=== PATIENT | male | born 1985 | race Caucasian/White ===

== ENCOUNTER 2021-02-27 22:42 | Emergency (ER) | payer BC ==
[2021-02-27] MEDS ORDERED: Cyclobenzaprine 10 MG Tab PO ONE (22:43)
[2021-02-27] MEDS ORDERED: Ketorolac 10 MG Tab PO ONE (22:43)
[2021-02-27] MEDS ORDERED: hydrOXYzine HCl 50 MG/ML SDV IM ONE (23:12)
[2021-02-27] MEDS ORDERED: HYDROmorphone 2 MG/ML SDV IM ONE (23:12)
--- NOTE | 2021-02-27 23:15 | EDM.PDOC ---
ED HPI GENERAL MEDICAL PROBLEM - General Chief Complaint: Back Pain or Injury Stated Complaint: back pain Time Seen by Provider: 02/27/21 23:13 Source of Information: Reports: Patient History Limitations: Reports: No Limitations - History of Present Illness INITIAL COMMENTS - FREE TEXT/NARRATIVE: Anuj complains of severe back pain x 2weeks. No trauma. Left sided,radiates across the back. No neuro deficit. No fever. Back Pain Score (Numeric/FACES): 8 - Related Data Allergies Allergy/AdvReac Type Severity Reaction Status Date / Time No Known Allergies Allergy Verified 09/13/15 11:25 Home Meds: Home Meds Albuterol Sulfate [Ventolin Hfa] 1 - 2 puff IH Q4HR PRN 09/13/15 [History] Ascorbate Calcium [Vitamin C] 500 mg PO BID 09/13/15 [History] Dm/PE/Acetaminophen/Chlorphenr [Sosa-Anthon Plus Cld-Cough] 1 each PO ASDIRECTED PRN 09/13/15 [History] Past Medical History Other Gastrointestinal History: HAVING BLOODY STOOLS, THAT IS WHY A COLONOSCOPY IS NEEDED Other Musculoskeletal History: HAD A BROKEN HAND AND IT WENT UNREPAIRED FOR 1 WEEK BEFORE THEY REBROKE AND RESET IT. ED ROS GENERAL - Review of Systems Review Of Systems: Comprehensive ROS is negative, except as noted in HPI. ED EXAM,LOWER BACK PAIN/INJURY - Physical Exam Exam: See Below Exam Limited By: No Limitations General Appearance: Alert, WD/WN Throat/Mouth: Normal Inspection Head: Atraumatic Neck: Normal Inspection Respiratory/Chest: No Respiratory Distress Back Exam: Normal Inspection, Paraspinal Tenderness, Vertebral Tenderness Extremities: Normal Inspection, Leg Pain, Limited Range of Motion Course - Vital Signs Last Recorded V/S: Last Vital Signs Temp 97.3 F 02/27/21 22:54 Pulse 80 02/27/21 23:31 Resp 16 02/27/21 23:31 BP 117/80 02/27/21 23:31 Pulse Ox 100 02/27/21 23:31 - Orders/Labs/Meds Meds: Medications Discontinued Medications Generic Name Dose Route Start Last Admin Trade Name Freq PRN Reason Stop Dose Admin Hydromorphone HCl 1 mg 02/27/21 23:12 02/27/21 23:24 Hydromorphone 2 Mg/Ml Sdv IM 02/27/21 23:13 1 mg ONETIME ONE Administration Hydroxyzine HCl 50 mg 02/27/21 23:12 02/27/21 23:23 Hydroxyzine Hcl 50 Mg/Ml Sdv IM 02/27/21 23:13 50 mg ONETIME ONE Administration Departure - Departure Time of Disposition: 11:06 Disposition: Home, Self-Care 01 Condition: Good Clinical Impression: Lower back pain Qualifiers: Chronicity: acute Sciatica laterality: sciatica laterality unspecified - Discharge Information Instructions: Acute Back Pain, Adult Referrals: PCP,None [Primary Care Provider] - Forms: ED Department Discharge Additional Instructions: Read information on back pain. Take one tablet of Cyclobenzaprine at bedtime. Take Ketorolac every 6 hours as needed for pain. Follow up with your primary care provider on Thursday. Sepsis Event Note (ED) - Evaluation Sepsis Screening Result: No Definite Risk - Focused Exam Vital Signs: Vital Signs Pulse Resp BP Pulse Ox 02/27/21 23:31 80 16 117/80 100 - Problem List & Annotations (1) Lower back pain SNOMED Code(s): 240476955 Code(s): M54.5 - LOW BACK PAIN Status: Acute Qualifiers: Chronicity: acute Sciatica laterality: sciatica laterality unspecified - Problem List Review Problem List Initiated/Reviewed/Updated: Yes - Assessment/Plan Plan: Dilaudid and VISTARIL. DC home on Toradol and Flexeril.See PCP on Thursday
[2021-02-27 23:50] VITALS: BP 117/80; PULSE 80
== END 2021-02-27 23:40 | disposition home or self-care (01) ==
LOC: FB.ED 22:42
DX: M54.42 Lumbago with sciatica, left side (principal)
CPT/HCPCS: 96372; 99283; A9270-GY; J1170; J3410